=== PATIENT | female | born 1955 ===

== ENCOUNTER → 2020-08-08 14:55 | Outpatient (BNVA) | payer BC, SELFPAY | PROVIDERS: PCP Internal Medicine; Visit Provider Urology ==

== ENCOUNTER 2020-12-06 11:12 | Emergency (ER) | payer BC, SELFPAY ==
--- NOTE | ~2020-12-06 | XR_ITS ---
EXAMINATION: XR CHEST CLINICAL INFORMATION: Chest pain COMPARISON: 03/23/2020 TECHNIQUE: 2 views of the chest were obtained. FINDINGS: No significant abnormality is noted involving the heart, lungs, mediastinum, bony thorax or soft tissues. XR/XR chest 2V IMPRESSION: Unremarkable examination.
--- NOTE | 2020-12-06 11:16 | ECG_ITS ---
Test Reason : CHEST PAIN Blood Pressure : / mmHG Vent. Rate : 069 BPM Atrial Rate : 069 BPM P-R Int : 190 ms QRS Dur : 088 ms QT Int : 406 ms P-R-T Axes : 053 027 040 degrees QTc Int : 435 ms Normal sinus rhythm Normal ECG When compared with ECG of 23-MAR-2020 13:14, No significant change was found Referred By: Carmen Aaron Electronically Signed By:CHANDLER CHOI
[2020-12-06 11:17] VITALS: BP 161/72; PULSE 75; RESP 18; TEMP 36.8; O2SAT 100; BMI 38.0
--- NOTE | 2020-12-06 11:18 | ED.CHESTPAIN ---
HPI - Chest Pain General Chief Complaint: Chest Pain Stated Complaint: chest pain Time Seen by Provider: 12/06/20 11:16 Source: EMS and front office coordinator Mode of arrival: EMS Limitations: no limitations and language barrier History of Present Illness HPI narrative: 65-year-old female here with complaints of mid sternal chest pain which radiates up to the throat x 2 hrs. She has past medical history of hypothyroidism, hypertension, hyperlipidemia, GERD. Per patient she has had several similar episodes and has been told that she likely has an esophageal spasm. Not currently taking any medications for this. She tells me off sometimes she takes a deep breath her pain is improved. She has no associated nausea, diaphoresis, dizziness, leg swelling. She does have some discomfort in both of her legs but tells me that she has ?inflammation all over her body ?. No history DVTs or PE. No recent travel or sick contacts. No fevers or chills. Related Data Home Medications Medication Instructions Recorded Confirmed amlodipine 5 mg tablet 7.5 mg PO DAILY 08/08/20 aspirin 81 mg tablet,delayed 81 mg PO DAILY 08/08/20 release atorvastatin 10 mg tablet 10 mg PO DAILY 08/08/20 levothyroxine 100 mcg tablet 100 mcg PO DAILY 08/08/20 pantoprazole 20 mg tablet,delayed 20 mg PO DAILY 08/08/20 release Previous Rx's Medication Instructions Recorded oxybutynin chloride 15 mg 15 mg PO DAILY #90 tab 08/08/20 tablet,extended release 24 hr Allergies Allergy/AdvReac Type Severity Reaction Status Date / Time lisinopril [LISINOPRIL] Allergy Unknown ANGIO Unverified 03/27/20 17:25 EDEMA, angioedema, angioedema Review of Systems Review of Systems: Yes all other systems are reviewed and are negative Constitutional: Constitutional: Reports no additional constitutional complaints, Denies body ache(s), Denies chills, Denies fever(s), Denies headache(s) and Denies weakness Eyes: Eyes: Reports no additional eye complaints and Denies change in vision ENT: Reports system reviewed and no additional complaints, except as documented, Denies dizziness, Denies headache(s), Denies nasal congestion, Denies nasal discharge and Denies neck pain Cardiovascular: Cardiovascular: Reports no additional cardiovascular complaints, Reports chest pain, Denies leg edema and Denies dyspnea Respiratory: Respiratory: Reports no additional respiratory complaints, Denies cough and Denies dyspnea Gastrointestinal: Gastrointestinal: Reports no additional gastrointestinal complaints, Denies abdominal pain, Denies diarrhea, Denies nausea and Denies vomiting Genitourinary: Genitourinary: Reports no additional female genitourinary complaints and Denies urinary incontinence Musculoskeletal: Musculoskeletal: Reports no additional musculoskeletal complaints, Denies back pain, Denies arthralgias, Denies joint swelling, Denies neck pain, Denies numbness and Denies tingling Integumentary/Breasts: Skin/Breast: Reports system reviewed and no additional complaints, except as docu and Denies rash Neurologic: Reports system reviewed and no additional complaints, except as documented, Denies Abnormal speech present, Denies dizziness, Denies headache(s), Denies numbness, Denies tingling and Denies weakness PMFSH Past Medical History Attestation statement: The following information was validated with the patient. Medical History High cholesterol HTN (hypertension) Hypothyroid Social History Social History Advance Directives: No Advance Directives Information Provided: Yes Physical Exam Vital Signs: Vital Signs: Last Vital Signs Temp 98.2 F 12/06/20 16:43 Pulse 80 12/06/20 16:43 Resp 17 12/06/20 16:43 BP 148/73 H 12/06/20 16:43 Pulse Ox 96 12/06/20 16:43 Body Mass Index 38.0 Const: General: cooperative, healthy appearing, comfortable and no acute distress Orientation/consciousness: patient oriented x3 Limitations: no limitations HENMT: Head: Yes normal to inspection Ears: hearing grossly normal bilaterally General nose exam: Normal external nose present Face and sinus: Yes normal facial exam Mouth: Normal oral and palatal mucosa present Throat: Yes posterior oropharynx normal Eyes: General: appearance normal, both eyes and all related structures Pupils: Equal, round and reactive pupils present Neck: Neck: Yes normal visual inspection Chest: Other: Central chest tender to palpate. Chest palpation & inspection: normal inspection of the chest Resp: Effort & Inspection: normal respiratory effort Auscultation: clear to auscultation bilaterally Cardio: Rate: regular rate Rhythm: regular rhythm Peripheral pulses: Peripheral pulses 2+ throughout GI: Inspection: Yes normal to inspection Palpation (GI): Soft to palpation and nontender Auscultation: normal bowel sounds Back/Spine/Pelvis: Thoracic/Lumbar Spine: thoracic and lumbar spine normal to inspection Skin: General skin exam: no rashes or lesions noted Neuro: General: patient oriented x3, no focal motor deficits and normal sensation to monofilament Cranial nerves: Yes Equal, round and reactive pupils present Cognition (Neuro): normal cognition Speech: No Abnormal speech present Gait exam (Neuro): Normal gait present Motor exam (neuro): 5/5 motor strength present throughout Extrem: Other: Mild tenderness to both calves with no swelling, erythema appreciated General: Yes normal to inspection and Yes no pedal edema Course Course Course Narrative: 65-year-old female here with chest pain x2 hours with no other associated symptoms. It seems the patient has a history of esophageal spasm but is not taking medications for this. Will check chest x-ray, EKG, labs. 1330-initial x-ray, EKG and labs are unremarkable. Plan for repeat 3 hour troponin. Daughter tells me that the patient had a workup for esophageal spasm which was positive. She is not on any daily medications for this. We discussed following up with the primary care doctor she may benefit from a CCB or other alternative. 1645-repeat troponin delta. Patient is feeling much improved after receiving a dose of Maalox and lidocaine. Likely esophageal spasm. We discussed following up with the primary care doctor as she may benefit from a daily medication to prevent these episodes from reoccurring. Reviewed worrisome signs and symptoms of when to return to the emergency department. Comfortable discharge home. MDM - Chest Pain MDM Narrative Medical decision making narrative: ACS, PE, PNA Less likely ACS with troponin x2 tells us, EKG which shows no ischemic changes and atypical chest pain. Less likely PE with PERC score is 0, negative D-dimer Medical Records Data Attestation: I reviewed the patient's medical records. Lab Data Attestation: I reviewed the patient's lab results. Result diagrams: 12/06/20 12:26 12/06/20 12:26 Labs: Lab Results 12/06/20 12/06/20 12/06/20 Range/Units 12:26 12:26 12:26 WBC 13.2 H (4.8-10.8) X10*3/uL RBC 4.30 (4.20-5.50) X10*6/uL Hgb 13.6 (12.0-16.0) g/dl Hct 40.4 (37-47) % MCV 94.0 (80-98) fL MCH 31.6 (27.0-33.0) pg MCHC 33.7 (31.0-35.0) g/dl RDW 13.7 (11.0-16.0) % Plt Count 261 (160-400) X10*3/uL MPV 9.9 (9.4-12.3) fL Immature Gran % (Auto) 0.4 (0.0-0.4) % Neut % (Auto) 81.2 H (45-73) % Lymph % (Auto) 12.1 L (20-40) % Carver % (Auto) 6.1 (2-11) % Eos % (Auto) 0.0 (0-4) % Baso % (Auto) 0.2 (0-2) % Lymph # (Auto) 1.6 (1.2-4.9) X10*3/uL Carver # (Auto) 0.8 (0.1-1.2) X10*3/uL Eos # (Auto) 0.0 (0.0-0.4) X10*3/uL Baso # (Auto) 0.0 (0.0-0.2) X10*3/uL Abs Immat Gran (auto) 0.05 H (0.00-0.03) X10*3/uL Absolute Neuts (auto) 10.7 H (2.0-8.3) X10*3/uL Absolute Nucleated RBC 0.000 (0.0-0.012) X10*3/uL Nucleated RBC % (auto) 0.0 (0.0-0.2) /100WBC PT 12.4 (10.8-13.0) SEC INR 1.0 (0.9-1.1) D-Dimer < 200 NG/ML Sodium 139 (135-145) mmol/L Potassium 3.8 (3.3-5.1) mmol/L Chloride 106 (96-108) mmol/L Carbon Dioxide 24 (22-29) mmol/L Anion Gap 13 (12-20) BUN 14 (9-16) mg/dL Creatinine 0.80 (0.5-1.4) mg/dL Estim Creat Clear Calc 91.4 Estimated GFR > 60 Random Glucose 103 (60-115) mg/dL Calcium 9.1 (8.4-10.2) mg/dL Magnesium 2.1 (1.6-2.6) mg/dL Total Bilirubin 0.4 (0.0-1.0) mg/dL Direct Bilirubin 0.2 (0.0-0.5) mg/dL AST 20 (5-31) U/L ALT 32 H (0-31) U/L Alkaline Phosphatase 96 (39-117) U/L Troponin I High Sens (<3.5-17.0) ng/L Total Protein 7.3 (6.5-8.0) g/dL Albumin 4.3 (3.5-5.0) g/dL 12/06/20 12/06/20 Range/Units 12:26 15:56 WBC (4.8-10.8) X10*3/uL RBC (4.20-5.50) X10*6/uL Hgb (12.0-16.0) g/dl Hct (37-47) % MCV (80-98) fL MCH (27.0-33.0) pg MCHC (31.0-35.0) g/dl RDW (11.0-16.0) % Plt Count (160-400) X10*3/uL MPV (9.4-12.3) fL Immature Gran % (Auto) (0.0-0.4) % Neut % (Auto) (45-73) % Lymph % (Auto) (20-40) % Carver % (Auto) (2-11) % Eos % (Auto) (0-4) % Baso % (Auto) (0-2) % Lymph # (Auto) (1.2-4.9) X10*3/uL Carver # (Auto) (0.1-1.2) X10*3/uL Eos # (Auto) (0.0-0.4) X10*3/uL Baso # (Auto) (0.0-0.2) X10*3/uL Abs Immat Gran (auto) (0.00-0.03) X10*3/uL Absolute Neuts (auto) (2.0-8.3) X10*3/uL Absolute Nucleated RBC (0.0-0.012) X10*3/uL Nucleated RBC % (auto) (0.0-0.2) /100WBC PT (10.8-13.0) SEC INR (0.9-1.1) D-Dimer NG/ML Sodium (135-145) mmol/L Potassium (3.3-5.1) mmol/L Chloride (96-108) mmol/L Carbon Dioxide (22-29) mmol/L Anion Gap (12-20) BUN (9-16) mg/dL Creatinine (0.5-1.4) mg/dL Estim Creat Clear Calc Estimated GFR Random Glucose (60-115) mg/dL Calcium (8.4-10.2) mg/dL Magnesium (1.6-2.6) mg/dL Total Bilirubin (0.0-1.0) mg/dL Direct Bilirubin (0.0-0.5) mg/dL AST (5-31) U/L ALT (0-31) U/L Alkaline Phosphatase (39-117) U/L Troponin I High Sens < 3.5 < 3.5 (<3.5-17.0) ng/L Total Protein (6.5-8.0) g/dL Albumin (3.5-5.0) g/dL Imaging Data Chest x-ray: Attestation: I personally reviewed and interpreted this imaging study as follows: Radiologist's impression: EXAMINATION: XR CHEST CLINICAL INFORMATION: Chest pain COMPARISON: 03/23/2020 TECHNIQUE: 2 views of the chest were obtained. FINDINGS: No significant abnormality is noted involving the heart, lungs, mediastinum, bony thorax or soft tissues. XR/XR chest 2V IMPRESSION: Unremarkable examination. ECG Data ECG #1: Attestation: I personally reviewed and interpreted this ECG as follows: ECG interpretation date: 12/06/20 ECG interpretation time: 11:22 Interpretation: NSR with rate 69, normal pr, normal qrs, normal qtc Discharge Plan Discharge Clinical Impression: Esophageal spasm, Chest pain Patient Disposition: Home, Self-Care Instructions: Chest Pain (ED), Esophageal Spasm (ED) Additional Instructions: Your lab work, EKG and chest x-ray today looks normal You tell me that you have a history of esophageal spasms. Discuss with your doctor daily medication that can be taken to prevent these episodes from occurring. an example of this type of medication is called cardizem. For symptoms in the meantime you may take 30ml of maalox every 8 hrs which can be purchased over the counter. Small frequent meals Avoid dairy, greasy/fatty foods and limit caffeine Prescriptions: No Action amlodipine 5 mg tablet 7.5 mg PO DAILY RF: 0 aspirin 81 mg tablet,delayed release (DR/EC) 81 mg PO DAILY RF: 0 pantoprazole 20 mg tablet,delayed release (DR/EC) 20 mg PO DAILY RF: 0 atorvastatin 10 mg tablet 10 mg PO DAILY RF: 0 levothyroxine 100 mcg tablet 100 mcg PO DAILY RF: 0 oxybutynin chloride 15 mg tablet extended release 24hr 15 mg PO DAILY Qty: 90 RF: 1 Referrals: Parvin Hay MD [Primary Care Provider] - 2 days Print Language: Indonesian
[2020-12-06 11:35] VITALS: PULSE 70
[2020-12-06 12:00] VITALS: BP 146/76; PULSE 70; RESP 18; O2SAT 96
[2020-12-06] MEDS: Lidocaine HCl Viscous 2 % 15 ML SOLUTION MUCOUS MEM (12:18)
[2020-12-06] MEDS: Magnesium Hydrox/Alum Hydrox 30 ML ORAL.SUSP PO (12:18)
[2020-12-06 12:31] LABS: MANUAL DIFF FLAG NO
[2020-12-06 12:33] LABS: Basophils Percent Auto 0.2 % (0-2); Hematocrit 40.4 % (37-47); Hemoglobin 13.6 g/dl (12.0-16.0); Imm Gran Abs Auto 0.05 X10*3/uL (0.00-0.03); Imm Gran Pct Auto 0.4 % (0.0-0.4); Lymphocytes Absolute Auto 1.6 X10*3/uL (1.2-4.9); Lymphocytes Percent Auto 12.1 % (20-40); Mean Corpuscular HGB Conc 33.7 g/dl (31.0-35.0); Mean Corpuscular Hemoglobin 31.6 pg (27.0-33.0); Mean Platelet Volume 9.9 fL (9.4-12.3); Monocytes Absolute Auto 0.8 X10*3/uL (0.1-1.2); Monocytes Percent Auto 6.1 % (2-11); Neutrophils Absolute Auto 10.7 X10*3/uL (2.0-8.3); Neutrophils Percent Auto 81.2 % (45-73); Platelet Count 261 X10*3/uL (160-400); Red Cell Distribution Width 13.7 % (11.0-16.0); White Blood Count 13.2 X10*3/uL (4.8-10.8)
[2020-12-06 12:39] LABS: Prothrombin Time 12.4 SEC (10.8-13.0)
[2020-12-06 12:45] LABS: D Dimer < 200 NG/ML
[2020-12-06 12:56] LABS: Troponin-I High Sensitivity < 3.5 ng/L (<3.5-17.0)
[2020-12-06 13:04] LABS: Alanine Aminotransferase 32 U/L (0-31); Albumin Level 4.3 g/dL (3.5-5.0); Alkaline Phosphatase 96 U/L (39-117); Anion Gap 13 (12-20); Aspartate Amino Transferase 20 U/L (5-31); Bilirubin Direct 0.2 mg/dL (0.0-0.5); Bilirubin Total 0.4 mg/dL (0.0-1.0); Blood Urea Nitrogen 14 mg/dL (9-16); Calcium 9.1 mg/dL (8.4-10.2); Carbon Dioxide 24 mmol/L (22-29); Chloride 106 mmol/L (96-108); Creatinine Clr Calc Pharmacy 91.4; Estimated Glomerular Filt Rate > 60; Glucose Random 103 mg/dL (60-115); Magnesium 2.1 mg/dL (1.6-2.6); Potassium 3.8 mmol/L (3.3-5.1); Sodium 139 mmol/L (135-145); Total Protein 7.3 g/dL (6.5-8.0)
[2020-12-06 16:40] LABS: Troponin-I High Sensitivity < 3.5 ng/L (<3.5-17.0)
[2020-12-06 16:43] VITALS: BP 148/73; PULSE 80; RESP 17; TEMP 36.8; O2SAT 96
== END 2020-12-06 16:54 | disposition home or self-care (01) ==
PROVIDERS: Nurse Practitioner Family; Emergency Provider Emergency Medicine Emergency Medical Services; PCP Internal Medicine
DX: K22.4 Dyskinesia of esophagus (principal); R07.9 Chest pain, unspecified; J02.9 Acute pharyngitis, unspecified; Z79.899 Other long term (current) drug therapy; Z79.82 Long term (current) use of aspirin
CPT/HCPCS: 36415; 71046; 80048; 80076; 83735; 84484; 85025; 85379; 85610; 93005; 99285

== ENCOUNTER → 2020-12-29 08:07 | Outpatient (BNVA) | payer BC, SELFPAY | PROVIDERS: PCP Internal Medicine; Visit Provider Obstetrics & Gynecology ==

== ENCOUNTER 2021-01-20 10:41 | Outpatient (REF) | payer BC, SELFPAY ==
--- NOTE | ~2021-01-20 | US_ITS ---
EXAMINATION: ULTRASOUND PELVIS AND TRANSVAGINAL. CLINICAL INFORMATION: Postmenopausal bleeding. COMPARISON: None TECHNIQUE: Transabdominal and transvaginal imaging of pelvis is performed. FINDINGS: The uterus is anteverted and anteflexed measuring 6.7 cm in length, 3.6 cm in AP and 4.2 cm in transverse dimension. The uterus is homogeneous in echotexture. The endometrial thickness measures 0.4 cm. The right ovary is not seen. The left ovary is not seen. There is no free fluid in the cul-de-sac. The small anechoic cysts in the cervix. US/US pelvic and transvaginal IMPRESSION: Small nabothian cysts in the cervix. The uterus is unremarkable. The ovaries are not seen.
== END 2021-01-20 10:42 | disposition home or self-care (01) ==
LOC: HO.US 10:41
PROVIDERS: Visit Provider Obstetrics & Gynecology
DX: N95.0 Postmenopausal bleeding (principal)
CPT/HCPCS: 76830; 76856

== ENCOUNTER → 2021-02-24 11:16 | Outpatient (BNVA) | payer BC, SELFPAY | PROVIDERS: PCP Internal Medicine; Visit Provider Obstetrics & Gynecology ==

== ENCOUNTER → 2021-03-11 09:11 | Outpatient (BNVA) | payer BC, SELFPAY | PROVIDERS: PCP Internal Medicine | DX: N32.81 Overactive bladder (principal); R39.15 Urgency of urination | CPT/HCPCS: 51798 ==

== ENCOUNTER 2021-08-20 08:43 | Outpatient (REF) | payer BC, SELFPAY ==
[2021-08-22 09:51] LABS: HPV mRNA E6/E7 rflx Not Detected (Not Detected)
== END 2021-08-20 08:44 | disposition home or self-care (01) ==
LOC: HO.LAB 08:43
PROVIDERS: PCP Internal Medicine; Visit Provider Obstetrics & Gynecology
DX: Z01.411 Encounter for gynecological examination (general) (routine) with abnormal findings (principal); Z11.51 Encounter for screening for human papillomavirus (HPV); N95.1 Menopausal and female climacteric states
CPT/HCPCS: 87624; 88142

== ENCOUNTER 2021-09-03 10:11 | Outpatient (REF) | payer BC, SELFPAY ==
--- NOTE | ~2021-09-03 | MM_ITS ---
EXAMINATION: BONE DENSITOMETRY CLINICAL INDICATION: Menopausal and female climacteric states. COMPARISON: None (current study represents initial baseline exam). TECHNIQUE: Using a [employer] DXA System (software version: 13.1) manufactured by [employer], dual-energy x-ray absorptiometry was performed of the lumbar spine and left hip. The images are of good technical quality. Summary results are attached. FINDINGS: AP SPINE L1-L4: BMD 1.365 g/cm2, Z-score 2.0, T-score 1.5, normal. LEFT FEMUR, NECK: BMD 0.825 g/cm2, Z-score -0.7, T-score -1.5, osteopenia. LEFT FEMUR, TOTAL: BMD 0.857 g/cm2, Z-score -0.7, T-score -1.2, osteopenia. IDENTIFIED RISK FACTORS: Height loss, menopause. HISTORY OF FRACTURE: None listed. MEDICATIONS: None listed. MM/XR DEXA axial skeleton IMPRESSION: 1. DIAGNOSIS: Osteopenia based on the lowest T-score value of -1.5 in the femoral neck applying World Health Organization criteria. 2. 10-YEAR FRACTURE RISK PREDICTION, FRAX: Major osteoporotic fracture (clinical spine, forearm, hip or shoulder) 4.9%. Hip fracture 0.6%. 3. Treatment Recommendations: NOF guidelines recommend consideration for treatment in postmenopausal women and men age 50 and older presenting with the following: -A hip or vertebral (clinical or morphometric) fracture. -T-score less than or equal to -2.5 at the femoral neck or spine after appropriate evaluation to exclude secondary causes. -Low bone mass at the hip or spine and a 10-year fracture probability by FRAX of greater than or equal to 3% for hip fracture or greater than or equal to 20% for major osteoporotic fracture based on the [place] adapted WHO algorithm. 4. Other Recommendations: All treatment decisions require clinical judgment and consideration of individual patient factors, including patient preferences, comorbidities, previous drug use, risk factors not captured in the FRAX model (e.g. frailty, falls, vitamin D deficiency, increased bone turnover, interval significant decline in bone density) and possible under or overestimation of fracture risk by FRAX. Additional medical evaluation for secondary cause of low bone mineral density may be appropriate. FUTURE SCAN RECOMMENDATION: People with diagnosed cases of osteoporosis or at high risk for fracture should have regular bone mineral density tests. For patients eligible for Medicare, routine testing is allowed once every 2 years. The testing frequency can be increased to one year for patients who have rapidly progressing disease, those who are receiving or discontinuing medical therapy to restore bone mass, or have additional risk factors.
== END 2021-09-03 10:12 | disposition home or self-care (01) ==
LOC: HO.MAMMO 10:11
PROVIDERS: PCP Internal Medicine; Visit Provider Obstetrics & Gynecology
DX: Z13.820 Encounter for screening for osteoporosis (principal); N95.1 Menopausal and female climacteric states; M85.80 Other specified disorders of bone density and structure, unspecified site
CPT/HCPCS: 77080

== ENCOUNTER → 2021-09-17 12:51 | Outpatient (BNVA) | payer BC, SELFPAY | PROVIDERS: Visit Provider Obstetrics & Gynecology ==

== ENCOUNTER → 2022-06-23 12:56 | Outpatient (BNVA) | payer MEDICARE, OTHER, SELFPAY | PROVIDERS: PCP Internal Medicine; Visit Provider Nurse Practitioner Family | DX: N32.81 Overactive bladder (principal); R39.15 Urgency of urination; Z79.899 Other long term (current) drug therapy | CPT/HCPCS: 51798; 99212 ==

== ENCOUNTER → 2022-10-21 10:46 | Outpatient (BNVA) | payer MEDICARE, OTHER, SELFPAY | PROVIDERS: PCP Internal Medicine; Visit Provider Obstetrics & Gynecology | DX: Z01.419 Encounter for gynecological examination (general) (routine) without abnormal findings (principal); R10.2 Pelvic and perineal pain | CPT/HCPCS: 99212 ==

== ENCOUNTER 2022-10-22 13:34 | Outpatient (REF) | payer MEDICARE, OTHER, SELFPAY ==
--- NOTE | ~2022-10-22 | US_ITS ---
EXAMINATION: US PELVIS COMPLETE CLINICAL INFORMATION: Pain COMPARISON: Pelvic ultrasound 01/20/2021 TECHNIQUE: Transabdominal and transvaginal imaging was performed. FINDINGS: The uterus is of normal size and echogenicity measuring 7.4 x 3.3 x 4.2 cm. A regular homogeneous endometrium is identified measuring 0.4 cm. Trace fluid within the endometrial canal versus cystic change. A 7 mm subendometrial cyst is also seen. Ovaries were not identified sonographically. No adnexal mass. There is no pelvic free fluid. US/US pelvic and transvaginal IMPRESSION: Trace fluid within the endometrial canal versus endometrial cystic change, which could be seen in the setting of cystic endometrial hyperplasia, although the endometrium is not thickened and only measures 4 mm. Consider gynecologic evaluation and follow-up imaging. An additional subendometrial cyst is seen which could be seen in the setting of adenomyosis, versus possibly a degenerating small fibroid.
== END 2022-10-22 13:35 | disposition home or self-care (01) ==
LOC: HO.US 13:34
PROVIDERS: PCP Internal Medicine; Visit Provider Obstetrics & Gynecology
DX: R10.2 Pelvic and perineal pain (principal)
CPT/HCPCS: 76830; 76856

== ENCOUNTER → 2022-11-09 13:32 | Outpatient (BNVA) | payer MEDICARE, OTHER, SELFPAY | PROVIDERS: PCP Internal Medicine; Visit Provider Obstetrics & Gynecology | DX: R93.5 Abnormal findings on diagnostic imaging of other abdominal regions, including retroperitoneum (principal) | CPT/HCPCS: 99212 ==

== ENCOUNTER 2022-11-12 10:16 | Day surgery (SDC) | payer MEDICARE, OTHER, SELFPAY ==
--- NOTE | 2022-11-11 12:11 | HO.ANESPROP2 ---
Documented by User: Adela Roberts NP 11/11/22 12:12 HPI - Anesthesia Eval Consult details Narrative: 67yo F for D&C Hysteroscopy,poss myomectomy,poss polypectomy PMFSH Active Problems Active Problems: All Active Problems (Updated 11/09/22 @ 14:05 by Demetrio Walker MD) Abnormal ultrasound of endometrium (Acute) Pelvic pain (Acute) Colon cancer screening (Acute) Osteoporosis (Acute) Osteopoikilosis (Acute) Menopausal state (Acute) Well woman exam (Acute) Postmenopausal bleeding (Acute) Overactive bladder (Acute) Urinary urgency (Acute) Past Medical History Medical History Dyspepsia Fibromyalgia GERD (gastroesophageal reflux disease) Hiatal hernia High cholesterol History of urinary frequency HTN (hypertension) Hypothyroid Stress incontinence in female Urinary urgency Family History Family History Mother Ovarian ca Surgical History Surgical History Hx of appendectomy Tubal ligation status Social History Social History Household Members: Spouse Housing: House Alcohol intake: never Patient Tobacco Use Status: Never used Tobacco Use of substances other than those prescribed or required for medical reasons: No Are you DNR?: No Advance Directives: No Advance Directives Information Provided: Yes Current occupational status: retired Sexual orientation: Straight/Heterosexual Gender identity: Female Meds Allergies Allergy/AdvReac Type Severity Reaction Status Date / Time lisinopril [LISINOPRIL] Allergy Unknown ANGIO Verified 11/12/22 10:59 EDEMA, angioedema, angioedema Home Medications Medication Instructions Recorded Confirmed Last Taken Type aspirin 81 mg tablet,delayed 81 mg PO DAILY 08/08/20 11/12/22 11/11/22 06:00 History release atorvastatin 10 mg tablet 10 mg PO DAILY 08/08/20 11/12/22 Unknown History levothyroxine 100 mcg tablet 100 mcg PO DAILY 08/08/20 11/12/22 Unknown History amlodipine 10 mg tablet 10 mg PO DAILY 03/11/21 11/12/22 Unknown History hyoscyamine sulfate 0.125 mg tablet 0.125 mg PO Q4H PRN Dyspepsia 03/11/21 11/12/22 Unknown History meloxicam 15 mg tablet 15 mg PO DAILY 03/11/21 11/12/22 Unknown History pantoprazole 40 mg tablet,delayed 40 mg PO DAILY 03/11/21 11/12/22 Unknown History release Exam Exam Date and Time: November 11, 2022 1211 Assessment and Plan Assessment Anesthesia Assessment: Chart Reviewed Documented by User: Bertha Bejarano MD 11/12/22 11:17 PMFSH Active Problems Active Problems: All Active Problems (Updated 11/12/22 @ 11:05 by Bertha Bejarano MD) Abnormal ultrasound of endometrium (Acute) Pelvic pain (Acute) Colon cancer screening (Acute) Osteoporosis (Acute) Osteopoikilosis (Acute) Menopausal state (Acute) Well woman exam (Acute) Postmenopausal bleeding (Acute) Overactive bladder (Acute) Urinary urgency (Acute) Past Medical History Medical History Dyspepsia Fibromyalgia GERD (gastroesophageal reflux disease) Hiatal hernia High cholesterol History of urinary frequency HTN (hypertension) Hypothyroid Stress incontinence in female Urinary urgency Family History Family History Mother Ovarian ca Family history of problems with anesthesia: No Surgical History Surgical History Hx of appendectomy Tubal ligation status History of Problems with Anesthesia: No Social History Social History Household Members: Spouse Housing: House Alcohol intake: never Patient Tobacco Use Status: Never used Tobacco Use of substances other than those prescribed or required for medical reasons: No Are you DNR?: No Advance Directives: No Advance Directives Information Provided: Yes Current occupational status: retired Sexual orientation: Straight/Heterosexual Gender identity: Female Meds Allergies Allergy/AdvReac Type Severity Reaction Status Date / Time lissuzipril [LISINOPRIL] Allergy Unknown ANGIO Verified 11/12/22 10:59 EDEMA, angioedema, angioedema Home Medications Medication Instructions Recorded Confirmed Last Taken Type aspirin 81 mg tablet,delayed 81 mg PO DAILY 08/08/20 11/12/22 11/11/22 06:00 History release atorvastatin 10 mg tablet 10 mg PO DAILY 08/08/20 11/12/22 Unknown History levothyroxine 100 mcg tablet 100 mcg PO DAILY 08/08/20 11/12/22 Unknown History amlodipine 10 mg tablet 10 mg PO DAILY 03/11/21 11/12/22 Unknown History hyoscyamine sulfate 0.125 mg tablet 0.125 mg PO Q4H PRN Dyspepsia 03/11/21 11/12/22 Unknown History meloxicam 15 mg tablet 15 mg PO DAILY 03/11/21 11/12/22 Unknown History pantoprazole 40 mg tablet,delayed 40 mg PO DAILY 03/11/21 11/12/22 Unknown History release Exam Height,Weight and Vital Signs: Height 5 ft 8 in Weight 68.946 kg Vital Signs Temp Pulse Resp BP Pulse Ox O2 Del Method 11/12/22 11:07 97.9 F 80 16 142/79 H 98 Room Air Airway Mallampati Class: II TM Dist: >3cm Neck ROM: Full Loose/Missing/Broken Teeth: Yes (Many missing. Denies broken, loose teeth) Heart: RRR Lungs: CTAB Assessment and Plan Assessment Anesthesia Assessment: Anesthesia Plan Discussed Final Anesthetic Review Family History of Problems with Anesthesia: No History of Problems with Anesthesia: No NPO: Yes ASA Class: II Final Preanesthetic Review: No Changes in Pt Med Stat, Meds/Allgs Chart Reviewed, Consent Obtained/Reviewed and Anes Risks/Benef Reviewed Patient Risk: Low Procedure Risk: Low Assessment/Block/Sedation in SS: Assess/Block/Sedation-SS Anesthetic Plan Anesthetic Plan: GA Disposition: Standard PACU
[2022-11-12 10:59] VITALS: BMI 23.1
[2022-11-12 11:07] VITALS: BP 142/79; PULSE 80; RESP 16; TEMP 36.6; O2SAT 98
[2022-11-12] MEDS: Lactated Ringers 1,000 ML 100 ML IVCONT (11:19)
--- NOTE | 2022-11-12 12:37 | MHC.SHP ---
Pre-Procedural Eval Section A Date of Service: 11/12/22 The patient is an INPATIENT: No Changes since office visit: No Cold of Flu in the past 2 weeks, No New Medical Problems, No Changes in Medication and No Patient answered all questions The History & Physical has been completed within 30 days and I have reviewed it.: Yes Section B Chief Complaint: Abnormal findings on diagnostic imaging of other Allergies: Allergies Allergy/AdvReac Type Severity Reaction Status Date / Time lisinopril [LISINOPRIL] Allergy Unknown ANGIO Verified 11/12/22 10:59 EDEMA, angioedema, angioedema Plan Diagnosis/Plan: Unchanged I have reviewed the history and physical and performed a pertinent physical examination on my patient. No changes have occurred unless specified. Time Spent With Patient Time: Total time managing care of this patient today ____ minutes.
--- NOTE | 2022-11-12 13:26 | PM.OP ---
Brief Operative Note Date of Service: 11/12/22 Pre-op diagnosis: Abnormal endometrium by ultrasound Post-op diagnosis: other (Normal endometrial cavity with no evidence of pathology) Procedure: Hysteroscopy D&C Surgeon: Demetrio Walker MD Anesthesia: GLMA Was an Client Services Assistant used for this Procedure?: No Estimated blood loss (mL): 0 Pathology: other (Endometrial Scrapping.) Condition: stable Disposition: PACU
--- NOTE | 2022-11-12 13:27 | W.PM.OPN ---
Operative Note Operative Note Date of Service: 11/12/22 Narrative: Preop Diagnosis: Abnormal endometrial cavity by ultrasound Operation: Diagnostic Hysteroscopy, Dilataion & Curettage Post Op Diagnosis: Normal endometrial cavity QBL: Minimal Anesthesia: GLMA Surgeon: Demetrio Walker MD Bookmobile Driver: None Complication: None Pathology: Endometrial Scrapings Procedure: The patient was put in the dorsal lithotomy position, scrubbed, and draped in the usual manner. A sterile speculum was inserted in the patient's vagina. The anterior lip of the cervix was grasped with a single tooth tenaculum. The cervix was dilated up to 5 mm, then the scope was inserted in the patient's uterus. Inspection revealed Normal endometrial cavity. The Myosure Reach device was used; the scope was removed from the endometrial cavity , sharp curettings was carried on with minimal to moderate amount of tissues retrieved. At the end of the procedure, all instruments were taken out of the patient uterine and vaginal cavity. The single tooth tenaculum was removed and homeostasis was assured using pressure,. The patient tolerated the procedure well and was transferred to the PACU in a stable condition.
[2022-11-12 13:35] VITALS: BP 149/87; PULSE 87; RESP 18; TEMP 36.5; O2SAT 100
[2022-11-12 13:40] VITALS: BP 147/67; PULSE 77; RESP 18; O2SAT 100
[2022-11-12 13:45] VITALS: BP 148/76; PULSE 80; RESP 18; O2SAT 98
[2022-11-12 13:50] VITALS: BP 135/75; PULSE 77; RESP 18; O2SAT 100
[2022-11-12 14:05] VITALS: BP 136/72; PULSE 78; RESP 18; TEMP 36.7; O2SAT 99
== END 2022-11-12 14:40 | disposition home or self-care (01) ==
PROVIDERS: PCP Internal Medicine; Visit Provider Obstetrics & Gynecology
PROC: 0UDB8ZZ Extraction of Endometrium, Via Natural or Artificial Opening Endoscopic (ICD-10-PCS; CPT 58558; principal; 2022-11-12 13:10)
DX: R93.5 Abnormal findings on diagnostic imaging of other abdominal regions, including retroperitoneum (principal); I10 Essential (primary) hypertension; E03.9 Hypothyroidism, unspecified; Z88.8 Allergy status to other drugs, medicaments and biological substances
CPT/HCPCS: 58558; 88305; J1100; J1885; J2250; J2405

== ENCOUNTER → 2022-12-03 11:23 | Outpatient (BNVA) | payer MEDICARE, OTHER, SELFPAY | PROVIDERS: PCP Internal Medicine; Visit Provider Obstetrics & Gynecology | DX: R93.5 Abnormal findings on diagnostic imaging of other abdominal regions, including retroperitoneum (principal) | CPT/HCPCS: 99212 ==

== ENCOUNTER 2023-01-04 07:50 | Outpatient (REF) | payer MEDICARE, OTHER, SELFPAY ==
[2023-01-04 15:07] LABS: CT PCR NOT DETECTED (Not Detect.); NG PCR NOT DETECTED (Not Detect.)
== END 2023-01-04 07:51 | disposition home or self-care (01) ==
LOC: HO.LNP 07:50
PROVIDERS: PCP Internal Medicine; Visit Provider Obstetrics & Gynecology
DX: R93.5 Abnormal findings on diagnostic imaging of other abdominal regions, including retroperitoneum (principal); Z20.2 Contact with and (suspected) exposure to infections with a predominantly sexual mode of transmission; Z30.430 Encounter for insertion of intrauterine contraceptive device
CPT/HCPCS: 0353U; 58300; J7298

== ENCOUNTER 2023-02-14 14:19 | Outpatient (AMB) | payer MEDICARE, OTHER, SELFPAY ==
--- NOTE | 2023-02-14 14:24 | A.OFFVIS_ITS ---
Intake Vital Signs 02/14/23 14:34 Height 5 ft 8 in Weight 255 lb BMI 38.8 BP 140/64 H Blood Pressure Location Lt brachial Position Sitting Pulse 83 Intake Visit Reasons: Colonoscopy Screening Intake Note: Patient new consult for 2nd pre colonoscopy screening. Patient cc: swallowing problems, low left back pain, and a big rectal blood cloth. Denies any other GI issues. Sleeve Machine Tender Required: Yes Sleeve Machine Tender Name: [facility] Accompanied by: Self / Same As Patient Allergies lisinopril [LISINOPRIL] Allergy (Unknown, Verified 01/04/23 07:58) ANGIO EDEMA, angioedema, angioedema Medication List - Last Reconciled 02/14/23 by Nely Woods PA-C amlodipine 10 mg PO DAILY aspirin 81 mg PO DAILY atorvastatin 10 mg PO DAILY hyoscyamine sulfate 0.125 mg PO Q4H PRN levothyroxine 100 mcg PO DAILY oxybutynin chloride ER 15 mg PO DAILY pantoprazole 40 mg PO DAILY HPI HPI Comments History of Present Illness Details A 68 y/o female referred screening colonoscopy- she presents with [id number] has a picture on her phone with blood in the stool- She has no abdominal pain, nausea or vomiting- Typically has normal bowel pattern- She then tells me that she is being seen at [facility] by -last seen 2 months ago has follow-up in March. She had a normal colonoscopy 2018 Appetite is good no nausea vomiting fever or chills No abdominal pain PFSH Medical History Dyspepsia Fibromyalgia GERD (gastroesophageal reflux disease) Hiatal hernia High cholesterol History of urinary frequency HTN (hypertension) Hypothyroid Stress incontinence in female Urinary urgency Surgical History Hx of appendectomy Tubal ligation status Family History Mother Ovarian ca Social History Household Members: Spouse Housing: House Alcohol intake: never Patient Tobacco Use Status: Never used Tobacco Current occupational status: retired Sexual orientation: Straight/Heterosexual Gender identity: Female Female Reproductive History Menstrual Age of Menarche: 11 Review of Systems Const All systems reviewed & are unremarkable except as noted in HPI and below Denies headache(s) ENT Denies dizziness and Denies headache(s) Card Denies chest pain and Denies dyspnea Resp Denies cough and Denies dyspnea GI Denies abdominal pain, Denies bloating, Reports hematochezia, Denies change in bowel habits, Denies GI cramping, Denies heartburn, Denies nausea and Denies vomiting Musc Reports back pain Neuro Denies dizziness and Denies headache(s) Physical Exam Vital Signs: Last Vital Signs Pulse 83 02/14/23 14:34 BP 140/64 H 02/14/23 14:34 BMI result Body Mass Index 38.8 Const General: cooperative, healthy appearing and comfortable Nutritional Appearance: overweight Orientation/consciousness: patient oriented x3 Limitations: language barrier Eyes Sclerae: sclerae normal Resp Effort & Inspection: normal respiratory effort and able to speak in complete sentences Auscultation: clear to auscultation bilaterally Cardio Rate: regular rate Rhythm: regular rhythm Heart sounds: S1 normal heart sound present and S2 normal heart sound present GI Palpation (GI): Soft to palpation and nontender Auscultation: normal bowel sounds Neuro General: patient oriented x3 Extrem General: Yes full ROM Psych Appearance: grossly normal and well kempt Mental Status: mental status grossly normal Speech and movement: Clear speech present Affect: normal affect Attitude: cooperative Thought content: Normal thought content present Assessment & Plan Assessment & Plan (1) Hematochezia: Comment: 68-year-old female referred for screening colonoscopy presents with 1 episode today of hematochezia patient She is currently established with the [facility] department she sees Ms. Vo- last 2 months ago has a follow-up appointment with her in March Code(s): K92.1 - Melena Plan: Call Ms. Vo office today and schedule sooner [id number] agrees with the plan Patient Instructions: Very pleasant 68-year-old female referred for screening colonoscopy-presents with 1 episode of hematochezia Already established with social media marketing analyst recent visit less than 2 months ago has follow-up appointment next month Would refer patient back to primary social media marketing analyst.-she and her agree with the plan There are no barriers to understanding identify Appointment was conducted in the presence of an chain hooker Appreciate the opportunity assist in the care the patient Coding Level of Care Code New Pt Level 3 (80632) Diagnoses Hematochezia K92.1 Time Spent (min) 20 Comment Sleeve Machine Tender
[2023-02-14 14:34] VITALS: BP 140/64; PULSE 83; BMI 38.8
== END 2023-02-14 15:12 | disposition home or self-care (01) ==
PROVIDERS: PCP Internal Medicine; Visit Provider Physician Assistant
DX: K92.1 Melena (principal)
CPT/HCPCS: 99203

== ENCOUNTER → 2023-02-14 14:19 | Outpatient (BNVA) | payer MEDICARE, OTHER, SELFPAY | PROVIDERS: PCP Internal Medicine; Visit Provider Physician Assistant | DX: K92.1 Melena (principal) | CPT/HCPCS: 99202 ==

== ENCOUNTER 2023-02-15 08:40 | Outpatient (REF) | payer MEDICARE, OTHER, SELFPAY | END 2023-02-15 08:41 | disposition home or self-care (01) | LOC: HO.LNP 08:40 | PROVIDERS: PCP Internal Medicine; Visit Provider Obstetrics & Gynecology | DX: N95.0 Postmenopausal bleeding (principal) | CPT/HCPCS: 58100; 88305; 99211 ==

== ENCOUNTER 2023-02-15 08:40 | Outpatient (AMB) | payer MEDICARE, OTHER, SELFPAY ==
--- NOTE | 2023-02-15 09:01 | MHC.OFFVIS ---
Intake Vital Signs 02/15/23 09:02 Height 5 ft 8 in Weight 253 lb 8.505 oz BMI 38.5 BP 128/86 Intake Visit Reasons: IUD Check Medical Imaging Technologist Required: Yes Medical Imaging Technologist Language: Copier Field Service Technician Name: Aleena ENAMORADO Information Interpreted: non-clinical & clinical Getter Welder: Getter Welder Present (Aleena ENAMORADO) Accompanied by: Self / Same As Patient Allergies lisinopril [LISINOPRIL] Allergy (Unknown, Verified 02/15/23 09:02) ANGIO EDEMA, angioedema, angioedema Post menopausal: Yes HPI HPI Comments History of Present Illness Details Presenting for IUD check complaining of daily spotting to heavy bleeding. No other associated symptom PFSH Medical History Dyspepsia Fibromyalgia GERD (gastroesophageal reflux disease) Hiatal hernia High cholesterol History of urinary frequency HTN (hypertension) Hypothyroid Stress incontinence in female Urinary urgency Surgical History Hx of appendectomy Tubal ligation status Family History Mother Ovarian ca Social History Household Members: Spouse Housing: House Alcohol intake: never Patient Tobacco Use Status: Never used Tobacco Current occupational status: retired Sexual orientation: Straight/Heterosexual Gender identity: Female Female Reproductive History Menstrual Age of Menarche: 11 Review of Systems Const All systems reviewed & are unremarkable except as noted in HPI and below Physical Exam Vital Signs: Last Vital Signs BP 128/86 02/15/23 09:02 BMI result Body Mass Index 38.5 General: Yes no CVA tenderness External Female Exam: normal external appearance and normal appearance of the urethra Speculum Exam - Vagina: normal appearance of the vagina, normal palpation, no lesions and no masses Speculum Exam - Cervix: normal appearance of the cervix, normal palpation, no lesions, no masses, nontender and Other cervical findings present (IUD string in place) Bimanual exam- vagina & uterus: normal bimanual exam, normal palpation, uterine size normal, normal palpation, uterine shape normal, No Cervical tenderness present and non-tender Bimanual Exam- Adnexa, other: normal adnexae Back/Spine/Pelvis Back: no CVA tenderness Office Procedures Endometrial Biopsy Details: The patient was counseled regarding the indication and benefits of endometrial sampling to rule out endometrial pathology including not limited to endometrial hyperplasia or endometrial cancer and others; The alternatives (Either do nothing vs. hysteroscopy D&C) & the risks were discussed with the patient including but not limited: pain, uterine perforation, bleeding, infection, possible injury to bladder, bowel, ureter, possible need for blood transfusion with all its possible risks. The patient verbalized understanding all questions answered and signed consent. The patient was placed into the dorsal lithotomy position; a speculum was inserted in the vagina. Using aseptic technique for the procedure, the cervix was cleansed with Betadine. The anterior lip of the cervix was grasped with a single tooth tenaculum. The uterus was sounded to 7 cm with a 4 mm Pipelle was used. Tissues samples were obtained and placed in formalin, in a patient labeled container and sent to the pathology department. At the end of the procedure, there was minimal bleeding noted The patient tolerated the procedure well and was discharged in good condition with the following instructions: Nothing in the vagina until the bleeding stops. No sex until the bleeding stops, to call if any of the following occurs: fever (>100.4), flu-like symptoms, abdominal pain, heavy bleeding, four smelling vaginal discharge. The patient was instructed to schedule a Follow up appointment in 2 weeks to discuss pathology results of the biopsy and treatment options. This note was generated with a voice recognition program. Some errors may have been overlooked during the review of this note. Sometimes these errors may affect the content or meaning of a given sentence. [id number] Biopsy Assessment & Plan Assessment & Plan (1) Postmenopausal bleeding: Comment: Proliferative endometrium by EMB in 11/30 on Mirena IUD Code(s): N95.0 - Postmenopausal bleeding Plan: Discussed with the patient the finding on physical exam, IUD string in place, the patient was reassured. Recommended repeat endometrial biopsy to rule out endometrial pathology as a cause of her postmenopausal bleeding, EMB done, see procedure note. All questions answered, the patient verbalized understanding. Orders: Orders AMB Endometrial Biopsy Today N95.0 - Postmenopausal bleeding Coding Level of Care Code Est Pt Level 3 (90052) Procedure Only Diagnoses Postmenopausal bleeding N95.0 CPT Codes Endometrial Biopsy - CPT: 89582-Dlhybzvznel Biopsy ([id number])
[2023-02-15 09:02] VITALS: BP 128/86; BMI 38.5
== END 2023-02-15 09:21 | disposition home or self-care (01) ==
LOC: HO.HWS 08:40
PROVIDERS: PCP Internal Medicine; Visit Provider Obstetrics & Gynecology
DX: N95.0 Postmenopausal bleeding (principal); Z97.5 Presence of (intrauterine) contraceptive device
CPT/HCPCS: 58100

== ENCOUNTER 2023-04-06 09:07 | Outpatient (AMB) | payer MEDICARE, OTHER, SELFPAY ==
--- NOTE | 2023-04-06 09:07 | A.OFFVIS_ITS ---
Intake Intake Visit Reasons: emb results Heat Treatment Technician Required: Yes Heat Treatment Technician Language: Nail Puller Name: Aleena ENAMORADO Information Interpreted: non-clinical & clinical Allergies lisinopril [LISINOPRIL] Allergy (Unknown, Verified 04/06/23 09:08) ANGIO EDEMA, angioedema, angioedema Post menopausal: Yes HPI HPI Comments History of Present Illness Details The patient scheduled tele health visit for follow-up post endometrial biopsy. The patient had Mirena IUD inserted 3 months ago for endometrial biopsy pathology showing secretory changes, follow-up endometrial biopsy showed a follow-up: Endometrium, biopsy: -Benign endometrium with breakdown, business process associate alec endometritis, inactive to focal secretory glands, and decidual stromal change consistent with progestin effect; no atypia or carcinoma. -Benign endocervical glandular and squam ous epithelium [facility] Medical History Hiatal hernia GERD (gastroesophageal reflux disease) Dyspepsia Stress incontinence in female History of urinary frequency Urinary urgency Fibromyalgia Hypothyroid HTN (hypertension) High cholesterol Surgical History Tubal ligation status Hx of appendectomy Family History Mother Ovarian ca Social History Household Members: Spouse Housing: House Alcohol intake: never Patient Tobacco Use Status: Never used Tobacco Current occupational status: retired Sexual orientation: Straight/Heterosexual Gender identity: Female Female Reproductive History Menstrual Age of Menarche: 11 Assessment & Plan Assessment & Plan (1) Postmenopausal bleeding: Comment: Proliferative endometrium by EMB in 11/30 on Mirena IUD Code(s): N95.0 - Postmenopausal bleeding Plan: Discussed with the patient the results the pathology showing progesterone effect, in addition to it sensitivity, specificity, false-positive and false- negative rate. Recommended repeat EMB in 4 months. Instructions given the patient to call in case of vaginal bleeding otherwise follow-up in 4 months for EMB. All questions answered, the patient verbalized understanding. I spent a total of 20 minutes reviewing the chart, talking to the patient via video and documenting in the medical record. The Communication with the patient was through Aleena Harrison MA, certified deckhand. Telehealth Telehealth Location of provider rendering services: practice address Location of patient: address on file Patient Identification confirmed using: Name, : Yes Telehealth method: video Patient verbally consented to treatment: Yes Patient verbally consented to billing insurance company: Yes Patient informed of any privacy concerns related to visit: Yes Coding Level of Care Code Tele Est Pt Level 1 (35879) Diagnoses Postmenopausal bleeding N95.0
== END 2023-04-06 11:25 | disposition home or self-care (01) ==
LOC: HO.HWS 09:07
PROVIDERS: PCP Internal Medicine; Visit Provider Obstetrics & Gynecology
DX: N95.0 Postmenopausal bleeding (principal)
CPT/HCPCS: 99211

== ENCOUNTER → 2023-04-06 09:07 | Outpatient (BNVA) | payer MEDICARE, OTHER, SELFPAY | PROVIDERS: PCP Internal Medicine; Visit Provider Obstetrics & Gynecology ==

== ENCOUNTER 2023-08-03 09:59 | Outpatient (REF) | payer MEDICARE, OTHER, SELFPAY | END 2023-08-03 10:00 | disposition home or self-care (01) | LOC: HO.LNP 09:59 | PROVIDERS: PCP Internal Medicine; Visit Provider Obstetrics & Gynecology | DX: N95.0 Postmenopausal bleeding (principal) | CPT/HCPCS: 58100; 88305 ==

== ENCOUNTER 2023-09-12 09:56 | Outpatient (AMB) | payer MEDICARE, OTHER, SELFPAY ==
[2023-09-12 10:44] VITALS: BP 126/78; BMI 38.5
--- NOTE | 2023-09-12 10:44 | A.OFFVIS_ITS ---
Intake Vital Signs 09/12/23 10:44 Height 5 ft 8 in Weight 253 lb BMI 38.5 BP 126/78 Intake Visit Reasons: EMB Results Drilling And Production Superintendent Required: Yes Drilling And Production Superintendent Name: KELSEA Boothe Information Interpreted: non-clinical & clinical Telecasting Technician: Telecasting Technician Present Accompanied by: Self / Same As Patient Allergies lisinopril [LISINOPRIL] Allergy (Unknown, Verified 09/12/23 10:46) ANGIO EDEMA, angioedema, angioedema Is last menstrual period known: No Post menopausal: Yes Patient : No HPI HPI Comments History of Present Illness Details The patient is presenting after endometrial biopsy. The patient has no complaints, no vaginal bleeding, no feverishness chills or abdominal pain. Endometrial biopsy pathology showed inactive endometrium. [facility] Medical History Hiatal hernia GERD (gastroesophageal reflux disease) Dyspepsia Stress incontinence in female History of urinary frequency Urinary urgency Fibromyalgia Hypothyroid HTN (hypertension) High cholesterol Surgical History Tubal ligation status Hx of appendectomy Family History Mother Ovarian ca Social History Household Members: Spouse Housing: House Alcohol intake: never Patient Tobacco Use Status: Never used Tobacco Patient : No Current occupational status: retired Sexual orientation: Straight/Heterosexual Gender identity: Female Female Reproductive History Menstrual Age of Menarche: 11 Review of Systems Const All systems reviewed & are unremarkable except as noted in HPI and below Reports as per HPI and Reports no additional complaints GI Reports no additional complaints Reports no additional complaints Physical Exam Vital Signs: Last Vital Signs BP 126/78 09/12/23 10:44 BMI result Body Mass Index 38.5 Assessment & Plan Assessment & Plan (1) Postmenopausal bleeding: Comment: Proliferative endometrium by EMB in 11/30 on Mirena IUD EMB in 08/03 inactive endometrium Code(s): N95.0 - Postmenopausal bleeding Plan: Discussed with the patient the results of the endometrial biopsy showing inactive endometrium. Discussed with the patient the sensitivity, specificity, positive and negative predictive value, of endometrial biopsy in detecting endometrial pathology including but not limited to endometrial hyperplasia, cancer and other pathology; instructed the patient to call in case vaginal bleeding bleeding recurs and to schedule repeat EMB in 4 months Coding Level of Care Code Est Pt Level 3 (92428) Diagnoses Postmenopausal bleeding N95.0
== END 2023-09-12 11:51 | disposition home or self-care (01) ==
LOC: HO.HWS 09:56
PROVIDERS: PCP Internal Medicine; Visit Provider Obstetrics & Gynecology
DX: N95.0 Postmenopausal bleeding (principal)
CPT/HCPCS: 99213

== ENCOUNTER → 2023-09-12 09:56 | Outpatient (BNVA) | payer MEDICARE, OTHER, SELFPAY | PROVIDERS: PCP Internal Medicine; Visit Provider Obstetrics & Gynecology | DX: N95.0 Postmenopausal bleeding (principal) | CPT/HCPCS: 99212 ==

== ENCOUNTER 2023-10-05 14:48 | Outpatient (AMB) | payer MEDICARE, OTHER, SELFPAY ==
--- NOTE | 2023-10-05 14:59 | A.OFFVIS_ITS ---
Intake Intake Visit Reasons: 1 yr follow up/ PVR Intake Note: Patient presents today for follow up [facility] Medication: Oxybutynin Blood Thinner: Aspirin Post Void Residual: 0ml's Farm Boss Required: Yes Farm Boss Name: VICENTE PATELMAURI Accompanied by: Self / Same As Patient Allergies lisinopril [LISINOPRIL] Allergy (Unknown, Verified 10/05/23 15:34) ANGIO EDEMA, angioedema, angioedema Medication List - Last Reconciled 10/05/23 by ELAINE Rosa amlodipine 10 mg PO DAILY aspirin 81 mg PO DAILY atorvastatin 10 mg PO DAILY hyoscyamine sulfate 0.125 mg PO Q4H PRN levothyroxine 100 mcg PO DAILY mirabegron ER (Myrbetriq) 25 mg PO DAILY 30 days pantoprazole 40 mg PO DAILY HPI HPI Comments History of Present Illness Details Kim is a 68-year-old American-speaking female patient of Dr. Slaughter. She has a past medical history of hiatal hernia, GERD, stress incontinence, urinary frequency, urinary urgency, fibromyalgia, hypothyroidism, hypertension, and hypercholesteremia. She presents to the office today for follow-up for overactive bladder. In discussion with the patient today she reports to be doing and feeling well. She reports having ran out of her refills on her oxybutynin and feels urinary symptoms of urinary urgency, urinary frequency, and episodes of incontinence have continued. She discusses having missed her follow-up due to her being in [place] taking care of a family member. However, while on oxybutynin she reports be happy with her current voiding parameters. Discussed affects of oxybutynin in related to beers criteria. Discussed trial of Myrbetriq. In office urinalysis results reviewed with the patient today. PVR 0 mL. She otherwise denies any bothersome urinary issues or concerns. [facility] Medical History Hiatal hernia GERD (gastroesophageal reflux disease) Dyspepsia Stress incontinence in female History of urinary frequency Urinary urgency Fibromyalgia Hypothyroid HTN (hypertension) High cholesterol Surgical History Tubal ligation status Hx of appendectomy Family History Mother Ovarian ca Social History Household Members: Spouse Housing: House Alcohol intake: never Patient Tobacco Use Status: Never used Tobacco Current occupational status: retired Sexual orientation: Straight/Heterosexual Gender identity: Female Female Reproductive History Menstrual Age of Menarche: 11 Review of Systems Const Reports no additional complaints Eyes Reports no additional complaints ENT Reports no additional complaints Card Reports as per HPI Resp Reports no additional complaints GI Reports as per HPI Reports as per HPI Musc Reports as per HPI Neuro Reports no additional complaints Psych Reports no additional complaints Endo Reports as per HPI Ronaldo/Lymph Reports no additional complaints Aller/Immun Reports as per HPI Physical Exam Const General: cooperative, healthy appearing, comfortable, no acute distress, well developed and alert Nutritional Appearance: overweight Orientation/consciousness: patient oriented x3 Limitations: no limitations HEENT Head: Yes normal to inspection and Yes normocephalic Eyes General: appearance normal, both eyes and all related structures Neck Neck: Yes normal visual inspection and Yes trachea midline Resp Effort & Inspection: normal respiratory effort and able to speak in complete sentences GI Inspection: Yes normal to inspection General: Yes no CVA tenderness Back/Spine/Pelvis Back: no CVA tenderness Skin General skin exam: no rashes or lesions noted Neuro General: patient oriented x3 Extrem General: Yes normal to inspection Psych Appearance: grossly normal and well kempt Mental Status: mental status grossly normal Speech and movement: Normal speech and movement present and Clear speech present Affect: normal affect Attitude: cooperative Thought content: Normal thought content present Insight: Fair insight present (Psych) Judgement: Fair judgement present (Psych) Results AMB Urinalysis, Automated UA Leukoctes 15 Unique/uL Last Edit by [employer] on 10/05/23 15:15 UA Nitrite Negative [facility] Edit [facility] on 10/05/23 15:15 UA Urobilinogen 0.2 mg/dL Last Edit by [employer] on 10/05/23 15:15 UA Protein 0 mg/dL Last Edit by [employer] on 10/05/23 15:15 UA pH 6.0 Last Edit by [facility] on 10/05/23 15:15 UA Blood 0 Jose Antonio/uL Last Edit by [facility] on 10/05/23 15:15 UA Specific [place] 1.010 Last Edit by [employer] on 10/05/23 15:15 UA Ketone Negative Last Edit by [employer] on 10/05/23 15:15 UA Bilirubin 0 mg/dL Last Edit by Paula [employer] on 10/05/23 15:15 UA Glucose 0 mg/dL Last Edit by Venkateshjonathan Yodit[employer]la on 10/05/23 15:15 Results Reviewed Results Reviewed: Laboratory Last Values Urine pH (Auto) 6.0 10/05/23 15:05 Specific [place] (Auto) 1.010 10/05/23 15:05 Urine Protein (Auto) 0 mg/dL 10/05/23 15:05 Glucose (UA)(Auto) 0 mg/dL 10/05/23 15:05 Urine Ketones (Auto) Negative 10/05/23 15:05 Urine Blood (Auto) 0 Jose Antonio/uL 10/05/23 15:05 Urine Nitrite (Auto) Negative 10/05/23 15:05 Urine Bilirubin (Auto) 0 mg/dL 10/05/23 15:05 Urine Urobilinogen (Auto) 0.2 mg/dL 10/05/23 15:05 Leukocyte Esterase (Auto) 15 Unique/uL 10/05/23 15:05 Assessment & Plan Assessment & Plan (1) Overactive bladder: Code(s): N32.81 - Overactive bladder (2) Urinary urgency: Code(s): R39.15 - Urgency of urination Plan In office urinalysis results reviewed with the patient today; as noted above. PVR 0 mL. Stop oxybutynin. Start Myrbetriq as discussed and prescribed. Discussed at length beers criteria on oxybutynin Discussed at length potential causes for lower urinary tract symptoms patient is experiencing. Discussed possible near future in office cystoscopy and or urodynamics if symptoms arise. Discussed bladder triggers/irritants. Discussed importance of timed/scheduled voiding. Follow-up in 6-8 weeks; or sooner with any issues, concerns, and or questions. Orders: Orders AMB Urinalysis Automated Today Z13.9 - Encounter for screening, unspecified AMB Post Void Residual by ultrasound Today N32.81 - Overactive bladder Medications: New mirabegron ER (Myrbetriq) 25 mg PO DAILY 30 days 30 tabs 3RF N30.10 - Interstitial cystitis (chronic) without hematuria, N32.81 - Overactive bladder, R35.1 - Nocturia, R39.15 - Urgency of urination Discontinued oxybutynin chloride ER Discontinued Reason: Doctor's Order 15 mg PO DAILY 90 tabs 3RF N32.81 - Overactive bladder Patient Instructions: The patient had an opportunity to ask questions regarding the treatment plan. All questions were answered. Physical exam, labs, and imaging were discussed and reviewed in detail. As well as risks, benefits, and discussion of treatment choices. No major barriers to understanding were identified. The patient expressed understanding and agreement with the above treatment plan. The patient was made aware they should contact our office by phone for worsening of their current condition, the appearance of new symptoms, or with any questions or concerns. Compliance is encouraged with any medications and follow up testing that is ordered. It is a privilege to be allowed the opportunity to participate in? your urological care.? Again, if you have any questions or concerns If you have any questions or concerns please do not hesitate to contact me. The office is [phone]. This note is constructed using voice recognition software. While every effort has been made to ensure accuracy vp customer development errors may have been included. Yours sincerely, ELAINE Rosa Coding Level of Care Code Est Pt Level 4 (05670) Diagnoses Overactive bladder N32.81 Urinary urgency R39.15
== END 2023-10-05 15:31 | disposition home or self-care (01) ==
PROVIDERS: PCP Internal Medicine; Visit Provider Nurse Practitioner Family
DX: N32.81 Overactive bladder (principal); R39.15 Urgency of urination
CPT/HCPCS: 99214

== ENCOUNTER → 2023-10-05 14:48 | Outpatient (BNVA) | payer MEDICARE, OTHER, SELFPAY | PROVIDERS: PCP Internal Medicine; Visit Provider Nurse Practitioner Family | DX: N32.81 Overactive bladder (principal); N39.46 Mixed incontinence | CPT/HCPCS: 81003; 99212 ==

== ENCOUNTER 2023-12-12 07:28 | Outpatient (REF) | payer MEDICARE, OTHER, SELFPAY | END 2023-12-12 07:29 | disposition home or self-care (01) | LOC: HO.LNP 07:28 | PROVIDERS: PCP Internal Medicine; Visit Provider Obstetrics & Gynecology | DX: N95.0 Postmenopausal bleeding (principal); Z01.419 Encounter for gynecological examination (general) (routine) without abnormal findings; Z78.0 Asymptomatic menopausal state | CPT/HCPCS: 58100; 88305; 99212; G0101 ==

== ENCOUNTER 2023-12-12 07:28 | Outpatient (AMB) | payer MEDICARE, OTHER, SELFPAY ==
[2023-12-12 07:41] VITALS: BMI 40.1
--- NOTE | 2023-12-12 07:41 | A.OFFVIS_ITS ---
Vital Signs 12/12/23 07:41 Height 5 ft 8 in Weight 264 lb BMI 40.1 Intake Visit Reasons: annual/EMB House Detective Required: Yes House Detective Language: Rate Examiner Name: Aleena ENAMORADO Information Interpreted: non-clinical & clinical Industrial Automation Engineer: Industrial Automation Engineer Present (Aleena ENMAORADO) Accompanied by: Self / Same As Patient Allergies lisinopril [LISINOPRIL] Allergy (Unknown, Verified 12/12/23 07:43) ANGIO EDEMA, angioedema, angioedema Post menopausal: Yes HPI Comments Details: Presenting for annual exam. Complaining of continuous vaginal spotting Last Pap/HPV was negative in 09/01 Last Mammogram was done at [facility] in 06/02 was negative according to the patient, no records available Last Colonoscopy was done few months ago at [facility], the recommendation according to the patient and was to repeat in 10 years, no records available Last DEXA scan was in 09/01 The patient the had postmenopausal bleeding endometrial biopsy in 11/30 showed proliferative endometrium since then has been on Mirena IUD, EMB in 03/02 and 08/03 showed no evidence of proliferative PFSH Medical History Hiatal hernia GERD (gastroesophageal reflux disease) Dyspepsia Stress incontinence in female History of urinary frequency Urinary urgency Fibromyalgia Hypothyroid HTN (hypertension) High cholesterol Surgical History Tubal ligation status Hx of appendectomy Family History Mother Ovarian ca Social History Household Members: Spouse Housing: House Alcohol intake: never Patient Tobacco Use Status: Never used Tobacco Current occupational status: retired Sexual orientation: Straight/Heterosexual Gender identity: Female Female Reproductive History Menstrual Age of Menarche: 11 control method: permanent sterilization Date of last pap smear: 08/21/21 Review of Systems Const All systems reviewed & are unremarkable except as noted in HPI and below Card Reports as per HPI Resp Reports as per HPI GI Reports as per HPI and Reports no additional complaints Reports as per HPI Physical Exam Vital Signs: BMI result Body Mass Index 38.2 Const General: cooperative, healthy appearing and comfortable Chest Chest palpation & inspection: normal inspection of the chest and normal palpation of entire chest wall Breast/axilla inspection: normal inspection of the breasts and normal inspection of the axillae Breast/axilla palpation: normal palpation of the breasts, normal palpation of the axillae and no axillary lymphadenopathy Resp Effort & Inspection: normal respiratory effort Auscultation: clear to auscultation bilaterally Percussion: percussion normal Cardio Palpation: normal PMI Rate: regular rate Rhythm: regular rhythm Heart sounds: no murmurs and no rubs Peripheral pulses: Peripheral pulses 2+ throughout GI Inspection: Yes normal to inspection Palpation (GI): Soft to palpation, nontender, no guarding, not rigid and No hepatosplenomegaly present Percussion: Yes normal to percussion Auscultation: normal bowel sounds Rectal Exam - Female: deferred General: Yes bladder normal to palpation External Female Exam: No lesion Speculum Exam - Vagina: normal appearance of the vagina, normal palpation, normal vaginal discharge and not erythematous Speculum Exam - Cervix: normal appearance of the cervix, normal palpation and Other cervical findings present (IUD string in place) Bimanual exam- vagina & uterus: normal bimanual exam, normal palpation, uterine size normal, bladder normal to palpation, consistency normal and normal palpation Bimanual Exam- Adnexa, other: normal adnexae, no masses and no tenderness Office Procedures Endometrial Biopsy Details: The patient was counseled regarding the indication and benefits of endometrial sampling to rule out endometrial pathology including not limited to endometrial hyperplasia or endometrial cancer and others; The alternatives (Either do nothing vs. hysteroscopy D&C) & the risks were discussed with the patient including but not limited: pain, uterine perforation, bleeding, infection, possible injury to bladder, bowel, ureter, possible need for blood transfusion with all its possible risks. The patient verbalized understanding all questions answered and signed consent. The patient was placed into the dorsal lithotomy position; a speculum was inserted in the vagina. Using aseptic technique for the procedure, the cervix was cleansed with Betadine. The anterior lip of the cervix was grasped with a single tooth tenaculum. The uterus was sounded to 7 cm with a 4 mm Pipelle was used. Tissues samples were obtained and placed in formalin, in a patient labeled container and sent to the pathology department. At the end of the procedure, there was minimal bleeding noted The patient tolerated the procedure well and was discharged in good condition with the following instructions: Nothing in the vagina until the bleeding stops. No sex until the bleeding stops, to call if any of the following occurs: fever (>100.4), flu-like symptoms, abdominal pain, heavy bleeding, four smelling vaginal discharge. The patient was instructed to schedule a Follow up appointment in 2 weeks to discuss pathology results of the biopsy and treatment options. This note was generated with a voice recognition program. Some errors may have been overlooked during the review of this note. Sometimes these errors may affect the content or meaning of a given sentence. 35524-Ffnavkmabfy Biopsy Assessment & Plan Assessment & Plan (1) Well woman exam: Code(s): Z01.419 - Encounter for gynecological examination (general) (routine) without abnormal findings Category: Medical Plan: Co testing not indicated Counseled the patient about the recommended dietary allowance of 1200 mg of Calcium & 800 IU of vitamin D. Instructions given the patient to schedule next screening Mammogram in 06/03. Will order DEXA scan . The patient was instructed to perform monthly self-breast exams and to schedule a 2 week DEXA scan follow-up appointment and an annual exam in a year; All questions answered and the patient verbalized understanding. (2) Postmenopausal bleeding: Comment: Proliferative endometrium by EMB in 11/30 on Mirena IUD EMB in 03/02 and 08/03 no evidence of proliferative endometrium Code(s): N95.0 - Postmenopausal bleeding Category: Medical Plan: EMB done, see procedure note. Instructions given the patient is schedule a 2 week EMB follow-up appointment Orders: Orders XR DEXA axial skeleton Today Z78.0 - Asymptomatic menopausal state AMB Endometrial Biopsy Today N95.0 - Postmenopausal bleeding Coding Level of Care Code Est Pt Prev Care >65y(17852) Diagnoses Well woman exam Z01.419 Postmenopausal bleeding N95.0 CPT Codes Endometrial Biopsy - CPT: 52520-Rhokxtrhkfh Biopsy ([id number])
== END 2023-12-12 08:11 | disposition home or self-care (01) ==
PROVIDERS: PCP Internal Medicine; Visit Provider Obstetrics & Gynecology
DX: N95.0 Postmenopausal bleeding (principal); Z91.89 Other specified personal risk factors, not elsewhere classified
CPT/HCPCS: 58100; 99213; G0101

== ENCOUNTER 2023-12-15 09:23 | Outpatient (AMB) | payer MEDICARE, OTHER, SELFPAY ==
--- NOTE | 2023-12-15 09:24 | A.OFFVIS_ITS ---
Intake Visit Reasons: Med review/frequency follow up Intake Note: Patient presents today via phone for follow up [facility] Medication: Oxybutynin Blood Thinner: Aspirin Spring Forger Required: Yes Spring Forger Name: MAURO MEDINAJUAN CARLOS Accompanied by: Self / Same As Patient Allergies lisinopril [LISINOPRIL] Allergy (Unknown, Verified 12/15/23 10:10) ANGIO EDEMA, angioedema, angioedema Medication List - Last Reconciled 12/15/23 by MICHAEL Rosa- amlodipine 10 mg PO DAILY aspirin 81 mg PO DAILY atorvastatin 10 mg PO DAILY hyoscyamine sulfate 0.125 mg PO Q4H PRN levonorgestrel (Mirena) intrauterine levothyroxine 100 mcg PO DAILY pantoprazole 40 mg PO DAILY vibegron (Gemtesa) 75 mg PO DAILY 30 days HPI Comments Details: Kim is a 68-year-old Armenian-speaking female patient of Dr. Slaughter. She has a past medical history of hiatal hernia, GERD, stress incontinence, urinary alex quency, urinary urgency, fibromyalgia, hypothyroidism, hypertension, and hypercholesteremia. She is being followed up on today via telehealth for her overactive bladder. Of note, patient was seen approximately 2 months ago at which time oxybutynin was discontinued and patient was trialed on Myrbetriq. In discussion with the patient today she reports feeling oxybutynin was more helpful than Myrbetriq. She reports noting urinary urgency, urinary frequency and episodes of incontinence if not near a bathroom despite 25 mg of Myrbetriq daily. She does not feel this was helpful. Discuss trial of other overactive bladder medication verses oxybutynin. Discussed affects of oxybutynin in relation to beers criteria. Discussed trial of tolterodine, vesicare, Toviaz, or Gemtesa. When asked she denies hematuria, dysuria, foul smelling urine, changes to urinary stream, flank pain, fever, and or chills. She otherwise denies any bothersome urinary issues or concerns. [facility] Medical History Hiatal hernia GERD (gastroesophageal reflux disease) Dyspepsia Stress incontinence in female History of urinary frequency Urinary urgency Fibromyalgia Hypothyroid HTN (hypertension) High cholesterol Surgical History Tubal ligation status Hx of appendectomy Family History Mother Ovarian ca Social History Household Members: Spouse Housing: House Alcohol intake: never Patient Tobacco Use Status: Never used Tobacco Current occupational status: retired Sexual orientation: Straight/Heterosexual Gender identity: Female Female Reproductive History Menstrual Age of Menarche: 11 Review of Systems Const Reports no additional complaints Eyes Reports no additional complaints ENT Reports no additional complaints Card Reports as per HPI Resp Reports no additional complaints GI Reports as per HPI Reports as per HPI Musc Reports as per HPI Neuro Reports no additional complaints Psych Reports no additional complaints Endo Reports as per HPI Ronaldo/Lymph Reports no additional complaints Aller/Immun Reports as per HPI Physical Exam Const General: cooperative Resp Effort & Inspection: able to speak in complete sentences Psych Speech and movement: Clear speech present Attitude: cooperative Thought process: Normal thought process present Thought content: Normal thought content present Insight: Fair insight present (Psych) Judgement: Fair judgement present (Psych) Telehealth Telehealth Telehealth Platform: Telephone Location of provider rendering services: practice address Location of patient: address on file Patient Identification confirmed using: Name, : Yes Telehealth method: voice only Patient verbally consented to treatment: Yes Patient verbally consented to billing insurance company: Yes Patient informed of any privacy concerns related to visit: Yes Minutes spent on Phone/Video with Pt.: 20 Assessment & Plan Assessment & Plan (1) Overactive bladder: Code(s): N32.81 - Overactive bladder Category: Medical (2) Urinary urgency: Code(s): R39.15 - Urgency of urination Category: Medical Plan Stop Myrbetriq Start Gemtesa 75 mg as discussed and prescribed. Discussed at length beers criteria and oxybutynin Discussed at length potential causes for lower urinary tract symptoms patient is experiencing. Discussed possible near future in office cystoscopy and or urodynamics if symptoms continue/arise. Discussed bladder triggers/irritants. Discussed importance of timed/scheduled voiding. Follow-up in 6-8 weeks; or sooner with any issues, concerns, and or questions. Medications: New vibegron (Gemtesa) 75 mg PO DAILY 30 days 30 tabs 2RF N32.81 - Overactive bladder Discontinued mirabegron ER (Myrbetriq) Discontinued Reason: Doctor's Order 25 mg PO DAILY 30 days 30 tabs 3RF N30.10 - Interstitial cystitis (chronic) without hematuria, N32.81 - Overactive bladder, R35.1 - Nocturia, R39.15 - Urgency of urination Patient Instructions: The patient had an opportunity to ask questions regarding the treatment plan. All questions were answered. Physical exam, labs, and imaging were discussed and reviewed in detail. As well as risks, benefits, and discussion of treatment choices. No major barriers to understanding were identified. The patient expressed understanding and agreement with the above treatment plan. The patient was made aware they should contact our office by phone for worsening of their current condition, the appearance of new symptoms, or with any questions or concerns. Compliance is encouraged with any medications and follow up testing that is ordered. It is a privilege to be allowed the opportunity to participate in? your urological care.? Again, if you have any questions or concerns If you have any questions or concerns please do not hesitate to contact me. The office is [phone]. This note is constructed using voice recognition software. While every effort has been made to ensure accuracy potato pancake frier errors may have been included. Yours sincerely, ELAINE Rosa Coding Level of Care Code Tele Est Pt Level 4 (87102) Diagnoses Overactive bladder N32.81 Urinary urgency R39.15
== END 2023-12-15 10:17 | disposition home or self-care (01) ==
LOC: HO.HUSH 09:23
PROVIDERS: PCP Internal Medicine; Visit Provider Nurse Practitioner Family
DX: N32.81 Overactive bladder (principal); R39.15 Urgency of urination
CPT/HCPCS: 99442

== ENCOUNTER → 2023-12-15 09:23 | Outpatient (BNVA) | payer MEDICARE, OTHER, SELFPAY | PROVIDERS: PCP Internal Medicine; Visit Provider Nurse Practitioner Family ==

== ENCOUNTER 2023-12-26 09:40 | Outpatient (AMB) | payer MEDICARE, OTHER, SELFPAY ==
--- NOTE | 2023-12-26 10:09 | A.OFFVIS_ITS ---
Vital Signs 12/26/23 10:20 Height 5 ft 8 in Weight 262 lb 5.601 oz BMI 39.9 BP 132/70 Intake Visit Reasons: EMB Results/per Remedy Developer Required: Yes Remedy Developer Language: Belarusian Information Interpreted: non-clinical & clinical Accompanied by: Self / Same As Patient Allergies lisinopril [LISINOPRIL] Allergy (Unknown, Verified 12/26/23 10:20) ANGIO EDEMA, angioedema, angioedema Post menopausal: Yes HPI Comments Details: The patient is presenting after endometrial biopsy. The patient has no complaints, no vaginal bleeding, no feverishness chills or abdominal pain. The endometrial biopsy pathology report showed the following: Endometrium, biopsy: Few strips of inactive endometrium and tubal metaplasia; negative for atypia, hyperplasia or malignancy The patient had an episode of postmenopausal bleeding which was followed by an endometrial biopsy the pathology of which showed Proliferative endometrium in 11/30, has been on Mirena IUD since 12/31,EMB in 03/02 and 08/03 and 01/01 no evidence of proliferative endometrium PFSH Medical History Hiatal hernia GERD (gastroesophageal reflux disease) Dyspepsia Stress incontinence in female History of urinary frequency Urinary urgency Fibromyalgia Hypothyroid HTN (hypertension) High cholesterol Surgical History Tubal ligation status Hx of appendectomy Family History Mother Ovarian ca Social History Household Members: Spouse Housing: House Alcohol intake: never Patient Tobacco Use Status: Never used Tobacco Current occupational status: retired Sexual orientation: Straight/Heterosexual Gender identity: Female Female Reproductive History Menstrual Age of Menarche: 11 Review of Systems Const All systems reviewed & are unremarkable except as noted in HPI and below Reports as per HPI and Reports no additional complaints GI Reports no additional complaints Reports no additional complaints Physical Exam Vital Signs: Last Vital Signs BP 132/70 12/26/23 10:20 BMI result Body Mass Index 39.9 Assessment & Plan Assessment & Plan (1) Postmenopausal bleeding: Comment: Proliferative endometrium by EMB in 11/30 on Mirena IUD EMB in 03/02 and 08/03 and 01/01 no evidence of proliferative endometrium Code(s): N95.0 - Postmenopausal bleeding Category: Medical Plan: Discussed with the patient the results of the endometrial biopsy showing inactive endometrium. Discussed with the patient the sensitivity, specificity, positive and negative predictive value, of endometrial biopsy in detecting endometrial pathology including but not limited to endometrial hyperplasia, cancer and other pathology; instructed the patient to call in case vaginal ble eding bleeding recurs, the next step will be to proceed with a diagnostic hysteroscopy/D&C for further endometrial sampling evaluation to rule out endometrial pathology. All questions answered and the patient verbalized understanding and agreed with the plan. Coding Level of Care Code Est Pt Level 3 (29899) Diagnoses Postmenopausal bleeding N95.0
[2023-12-26 10:20] VITALS: BP 132/70; BMI 39.9
== END 2023-12-26 12:32 | disposition home or self-care (01) ==
PROVIDERS: PCP Internal Medicine; Visit Provider Obstetrics & Gynecology
DX: N95.0 Postmenopausal bleeding (principal)
CPT/HCPCS: 99213

== ENCOUNTER → 2023-12-26 09:40 | Outpatient (BNVA) | payer MEDICARE, OTHER, SELFPAY | PROVIDERS: PCP Internal Medicine; Visit Provider Obstetrics & Gynecology | DX: N95.0 Postmenopausal bleeding (principal) | CPT/HCPCS: 99212 ==

== ENCOUNTER → 2024-03-08 09:18 | Outpatient (BNVA) | payer MEDICARE, OTHER, SELFPAY | PROVIDERS: PCP Internal Medicine; Visit Provider Obstetrics & Gynecology | DX: N95.0 Postmenopausal bleeding (principal) | CPT/HCPCS: 99212 ==

== ENCOUNTER 2024-03-08 09:20 | Outpatient (AMB) | payer MEDICARE, OTHER, SELFPAY ==
[2024-03-08 09:18] VITALS: BMI 39.9
--- NOTE | 2024-03-08 09:18 | MHC.OFFVIS ---
Vital Signs 03/08/24 09:18 Height 5 ft 8 in Weight 262 lb 5.601 oz BMI 39.9 Intake Visit Reasons: vaginal bleeding Scheduling Analyst Required: Yes Scheduling Analyst Language: Business Development Professional Services: Scheduling Analyst Present (in person) Scheduling Analyst Name: Aleena ENAMORADO Information Interpreted: non-clinical & clinical Network Development Coordinator: Network Development Coordinator Present (Aleena ENAMORADO) Accompanied by: Self / Same As Patient Allergies lisinopril [LISINOPRIL] Allergy (Unknown, Verified 03/08/24 09:19) ANGIO EDEMA, angioedema, angioedema Post menopausal: Yes HPI Comments Details: Presenting for recurrent vaginal bleeding. The patient had postmenopausal bleeding in 11/30 underwent hysteroscopy D&C pathology showed weakly proliferative endometrium 12/31 Mirena IUD was inserted 03/02 repeat EMB pathology showed inactive endometrium with no evidence of endometrial hyperplasia and/or malignancy or atypia 08/03 repeat EMB pathology showed inactive endometrium 01/01 EMB pathology inactive endometrium with no evidence of endometrial hyperplasia malignancy or atypia 11/01 pelvic ultrasound showed the following: The uterus is of normal size and echogenicity measuring 7.4 x 3.3 x 4.2 cm. A regular homogeneous endometrium is identified measuring 0.4 cm. Trace fluid within the endometrial canal versus cystic change. A 7 mm subendometrial cyst is also seen. Ovaries were not identified sonographically. No adnexal mass. There is no pelvic free fluid. Last co testing was in 09/01 was negative Last mammogram was in 10/01 was BI-RADS 1 [facility] Medical History Hiatal hernia GERD (gastroesophageal reflux disease) Dyspepsia Stress incontinence in female History of urinary frequency Urinary urgency Fibromyalgia Hypothyroid HTN (hypertension) High cholesterol Surgical History Tubal ligation status Hx of appendectomy Family History Mother Ovarian ca Social History Household Members: Spouse Housing: House Alcohol intake: never Patient Tobacco Use Status: Never used Tobacco Current occupational status: retired Sexual orientation: Straight/Heterosexual Gender identity: Female Female Reproductive History Menstrual Age of Menarche: 11 Physical Exam Vital Signs: BMI result Body Mass Index 39.9 Assessment & Plan Assessment & Plan (1) Postmenopausal bleeding: Code(s): N95.0 - Postmenopausal bleeding Category: Medical Plan: Discussed with the patient the options of treatment including surgical definitive treatment versus hysteroscopy D&C with ultrasound to rule out new pathology, all pros and cons, risks and benefits of each approach were discussed with the patient, the patient decided to proceed with surgical management. Discussed with the patient the different types of hysterectomies including, vaginal, laparoscopic assisted vaginal, robotic assisted laparoscopic,& abdominal with BSO. All pros, cons, r/b of each approach were discussed the patient including evidence that morbidity is less and recovery is shorter with minimally invasive approaches to hysterectomy. Discussed with the patient the lack of availability of the robot DaVinci robot and/or minimally invasive referral and information aide specialist at [facility]. The patient will be referred to a tertiary care center for minimally invasive operations support representative surgery. All questions answered, the patient verbalized understanding Instructed the patient to call our office back in case a referral appointment is not scheduled, missed or canceled so that we will assist on rescheduling another appointment, the patient verbalized understanding agreed with the plan. Coding Level of Care Code Est Pt Level 3 (36331) Diagnoses Postmenopausal bleeding N95.0
== END 2024-03-08 10:03 | disposition home or self-care (01) ==
PROVIDERS: PCP Internal Medicine; Visit Provider Obstetrics & Gynecology
DX: N95.0 Postmenopausal bleeding (principal)
CPT/HCPCS: 99213